=== PATIENT | male | born 2000 | race Hispanic/Latino ===

== ENCOUNTER 2020-08-27 14:52 | Emergency (ER) | payer OTHER ==
[~2020-08-27] VITALS: Ht 190.5 cm; Wt 106.6 kg
[2020-08-27] MEDS ORDERED: THERAFLU FLU &1 EAC1 PO (15:05)
[2020-08-27] MEDS ORDERED: IBUPROFEN IB200 MG PO (15:05)
[2020-08-27] MEDS ORDERED: AFRIN15 ML (15:17)
[2020-08-27] MEDS ORDERED: CLARITIN-D 241 EACH PO (15:17)
== END 2020-08-27 15:42 | disposition home or self-care (01) ==
LOC: FSED 14:59
DX: J06.9 Acute upper respiratory infection, unspecified (principal); J30.9 Allergic rhinitis, unspecified
CPT/HCPCS: 99282